=== PATIENT | female | born 1985 | race Caucasian/White ===

== ENCOUNTER 2018-01-19 18:36 | Emergency (ER) | payer MEDICAID, OTHER | END 2018-01-19 21:21 | disposition home or self-care (01) | LOC: FTE 18:36 | DX: H10.13 Acute atopic conjunctivitis, bilateral (principal); H10.023 Other mucopurulent conjunctivitis, bilateral; F17.210 Nicotine dependence, cigarettes, uncomplicated | CPT/HCPCS: 99283; Z7502 ==

== ENCOUNTER 2018-03-29 19:13 | Emergency (ER) | payer MEDICAID | END 2018-03-29 22:40 | disposition home or self-care (01) | LOC: FTE 19:13 | DX: S80.12XA Contusion of left lower leg, initial encounter (principal); J06.9 Acute upper respiratory infection, unspecified; L08.9 Local infection of the skin and subcutaneous tissue, unspecified; F17.210 Nicotine dependence, cigarettes, uncomplicated; W10.8XXA Fall (on) (from) other stairs and steps, initial encounter; Y92.009 Unspecified place in unspecified non-institutional (private) residence as the place of occurrence of the external cause | CPT/HCPCS: 99283; Z7502 ==